=== PATIENT | male | born 1990 | race Caucasian/White ===

== ENCOUNTER 2016-08-26 16:35 | Emergency (ER) | payer MEDICAID ==
[~2016-08-26] VITALS: Ht 190.5 cm; Wt 171.1 kg
[2016-08-26 18:33] LABS: Hematocrit 49.3 % (41.0-53.0); Hemoglobin 16.3 g/dL (13.5-17.5); Mean Corpuscular Hemoglobin 28.4 pg (28.0-32.0); Mean Corpuscular Hgb Conc. 33.1 g/dL (32.0-36.0); Mean Corpuscular Volume 85.6 fL (80.0-100.0); Platelet Count (auto) 301 10^3/uL (140-450); Red Cell Distribution Width 16.1 % (11.6-16.0); SUSPECT VIEW TRANSMISSION; White Blood Cell 13.7 10^3/uL (4.4-10.8)
[2016-08-26 18:34] LABS: Calcium 9.3 mg/dL (8.5-10.1); Metamyelocytes % 0; Myelocytes % 0; Potassium 4.2 mmol/L (3.5-5.1); Promyelocytes % 0; Reactive Lymphocytes 0
[2016-08-26 18:37] LABS: Bilirubin, Total 0.9 mg/dL (0.2-1.0); Total Protein 7.6 g/dL (6.4-8.2)
[2016-08-26 19:12] LABS: Urine Bilirubin Negative (Negative); Urine Ca Oxalate Crystal MOD (None Seen); Urine Color Brown (Yellow); Urine Glucose Normal (Normal); Urine Ketone TRACE (Negative); Urine Mucus MODERATE (None Seen); Urine Nitrite Negative (Negative); Urine RBC 1922 /hpf (0 - 3)
[2016-08-26 19:17] LABS: Urine Blood 3+ /uL (Negative)
[2016-08-26 20:33] LABS: Platelet Clumps FEW
[2016-08-27] MEDS ORDERED: HYDROmorphone HCL 2 MG/ML VL IM ONE (05:00)
[2016-08-27 05:12] VITALS: BP 126/88
== END 2016-08-27 05:49 | disposition home or self-care (01) ==
LOC: ER 16:40
DX: N20.1 Calculus of ureter (principal); K40.90 Unilateral inguinal hernia, without obstruction or gangrene, not specified as recurrent; R16.0 Hepatomegaly, not elsewhere classified; R16.1 Splenomegaly, not elsewhere classified; N13.5 Crossing vessel and stricture of ureter without hydronephrosis
CPT/HCPCS: 36415; 74176; 80053; 81001; 85007; 85027; 96372; 99285; J1170

== ENCOUNTER 2021-03-06 08:20 | Day surgery (SDC) | payer BC ==
[~2021-03-06] VITALS: Ht 190.5 cm; Wt 154.2 kg
[~2021-03-06 08:20] MED LIST: IBUP800T27 PO
[2021-03-06] MEDS ORDERED: ceFAZolin 1GM/50ML 100 ML IV ONE (08:31)
[2021-03-06] MEDS ORDERED: fentaNYL CITRATE 100 MCG/2 ML VL ONE (11:50)
[2021-03-06] MEDS ORDERED: HYDROmorphone HCL 2 MG/ML VL ONE ×2 (11:50→14:02)
[2021-03-06] MEDS ORDERED: MIDAZOLAM HCL 2MG/2ML 2ml VIAL (1mg/ml) ONE (11:50)
[2021-03-06] MEDS ORDERED: ROCURONIUM 10MG/ML 10ML VIAL IV ONE (12:05)
[2021-03-06] MEDS ORDERED: ONDANSETRON HCL 4 MG/2 ML VIAL ONE (13:27)
[2021-03-06] MEDS ORDERED: PROPOFOL 10 MG/ML 20 ML IV ONE (13:27)
[2021-03-06] MEDS ORDERED: HYDROmorphone HCL 2 MG/ML VL IV PRN (14:00)
[2021-03-06] MEDS ORDERED: ONDANSETRON HCL 4 MG/2 ML VIAL IV PRN (14:00)
[2021-03-06] MEDS: HYDROmorphone HCL 2 MG/ML VL IV PRN ×4 (14:02→14:33)
[2021-03-06 14:40] VITALS: BP 136/80
== END 2021-03-06 15:00 | disposition home or self-care (01) ==
LOC: SUR 08:20
PROVIDERS: ATTEND Orthopaedic Surgery
DX: S82.852A Displaced trimalleolar fracture of left lower leg, initial encounter for closed fracture (principal); E66.01 Morbid (severe) obesity due to excess calories; Z68.41 Body mass index [BMI] 40.0-44.9, adult; Z20.822 Contact with and (suspected) exposure to COVID-19; X58.XXXA Exposure to other specified factors, initial encounter; Y93.89 Activity, other specified; Y92.89 Other specified places as the place of occurrence of the external cause; Y99.8 Other external cause status
CPT/HCPCS: 27822; 73600; 76000; C1713; J0690; J1170; J2250; J2405; J2704; J3010; U0003